=== PATIENT | male | born 1955 | race Caucasian/White ===

== ENCOUNTER 2022-07-28 14:08 | Emergency (ER) | payer OTHER, MEDICAID, SELFPAY ==
[2022-07-28 14:27] VITALS: BP 128/72; PULSE 106; RESP 22; TEMP 37.1; O2SAT 95; BMI 39.3
--- NOTE | 2022-07-28 14:38 | DI.RAD.S_ITS ---
PROCEDURE: XR CHEST 1V INDICATIONS: b/l leg swelling, testicular swelling TECHNIQUE: One view of the chest was acquired. COMPARISON: [facility], CR, XR CHEST 1 VIEW, 04/11/2022, 18:33. [facility], CR, XR CHEST 1 VIEW, 03/02/2022, 18:09. FINDINGS: Surgical changes and devices: None. Lungs and pleura: Lungs appear clear. No pleural effusions or pneumothorax. Mediastinum: Mediastinal contours appear unchanged. Heart size is normal. Bones and chest wall: No suspicious bony lesions. Overlying soft tissues appear unremarkable. IMPRESSION: No acute cardiopulmonary abnormality identified. Dictated by: Bruce Whalen M.D. on 07/28/2022 at 15:58 Approved by: Bruce Whalen M.D. on 07/28/2022 at 15:59
--- NOTE | 2022-07-28 14:38 | DI.US.S_ITS ---
PROCEDURE: US SCROTUM INDICATIONS: SCROTAL SWELLING TECHNIQUE: Real-time scanning was performed of the scrotum and testicles, with image documentation. Color and pulse Doppler interrogation was performed of both testicles. COMPARISON: None. FINDINGS: Right: Testicle is normal in size at 5.6 x 3.6 x 4.3 cm, and homogenous in echotexture. Epididymis is normal in overall size and morphology. Small loculated hydrocele. Overlying scrotal skin is significantly thickened. Left: Testicle is normal in size at 4.4 x 3.3 x 2.7 cm, and homogeneous in echotexture. Epididymis is normal in overall size and morphology. No hydrocele or varicoceles. Overlying scrotal skin is normal in thickness. Doppler: Increased vascularity of the right epididymis and testicle. Normal blood flow within the left epididymis and testicle. IMPRESSION: Severe right scrotal wall thickening, without drainable collection. Suspected right-sided epididymo-orchitis, as evidenced by increased vascularity and a tiny loculated right-sided hydrocele. Dictated by: Waqas Vasquez M.D. on 07/28/2022 at 15:20 Approved by: Waqas Vasquez M.D. on 07/28/2022 at 15:24
--- NOTE | 2022-07-28 14:40 | ED.MALEGU ---
HPI - Male Genitourinary General Chief complaint: Urogenital-Male Stated complaint: swollen testicles Time Seen by Provider: 07/28/22 14:38 Source: patient Mode of arrival: Ambulatory Limitations: no limitations History of Present Illness HPI Narrative: This is a 67-year-old male with history of polysubstance abuse with fentanyl and methamphetamines. Patient states he has had swelling in his legs longstanding he has been hospitalized before. He states he does not take any daily medications. He states it has been told he just has swelling but he is not aware of any congestive heart failure history. Patient states his legs are quite swollen today but they wax and wane and how swollen they are it is not significantly worse than his typical. The reason he presents as he is had new swelling in his testicles bilaterally and they become quite tight and painful. He states this is new. He does not appreciate the swelling from his legs into his thighs or abdomen. He patient states no fevers or chills. Denies any chest pain or shortness breath. He denies orthopnea. He denies any nausea or vomiting, no GI or urinary symptoms other than he has been using a trash bag to wrap around his testicles to catch his urine as they are swollen enough that can not direct the stream. Patient states his legs feel tight but not painful. He states the testicles do not feel painful in the deep tissue but more that they are very tight. He does notice some redness. He denies any drainage. No cuts or wounds. He has not had any weeping from legs with the testicles. He states he has been able to urinate it is just awkward. He denies discharge, no dysuria urgency or frequency. He states no prescription medications but does not follow regularly with primary care. Denies surgeries. He does use tobacco about 5 cigarettes daily, occasional alcohol, he states no injected medications but he does smoke fentanyl in methamphetamines regularly. Related Data Previous Rx's Medication Instructions Recorded doxycycline hyclate 100 mg tablet 100 mg PO BID #20 tabs 07/28/22 Allergies Allergy/AdvReac Type Severity Reaction Status Date / Time Penicillins Allergy Intermediate Hives Verified 07/28/22 14:32 Review of Systems Review of Systems ROS Unobtainable: All systems reviewed & are unremarkable except as noted in HPI and below Patient History Social History Smoking Status: Former smoker Smoking Status: Former smoker alcohol intake frequency: 0-2 drinks per day Substance Use Type: opiates Exam Narrative Exam Narrative: GENERAL: Alert and oriented x three, obese male in mild distress. HEENT: Head normocephalic, atraumatic, EOMI, pupils reactive, face symmetric, moist mucous membranes NECK: Supple, full range of motion CARDIOVASCULAR: Regular rate and rhythm without murmurs, rubs or gallops. RESPIRATORY: Breath sounds equal bilaterally, no wheezes rales or rhonchi. ABDOMEN: Soft, nontender. Normoactive bowel sounds all 4 quadrants. No guarding or rebound, rigidity, no mass : No CVA tenderness. Male: Patient has significant swelling of bilateral testicles, they feel full, tight, mildly tender to pain, there is erythema, no drainage, no open wounds, no necrosis, no penile discharge or lesions, the penis itself does not appear swollen appear in enveloped by his testicles, I am able to visualize his urethral meatus no discharge. Non-tender, cremasteric reflex intact, no inguinal hernias noted. EXTREMITIES: Normal range of motion, patient has bilateral edema lower extremities nonpitting, patient has thickened hyperkeratotic skin with discoloration consistent with chronic venous stasis change bilaterally. Neurovascularly intact. NEUROLOGICAL: Cranial nerves II through XII grossly intact. Moving all extremities SKIN: Warm, dry, no petechiae, no rashes or lesions otherwise noted. Initial Vital Signs Initial Vital Signs: Vital Signs Temperature 98.7 F 07/28/22 14:27 Pulse Rate 106 H 07/28/22 14:27 Respiratory Rate 22 07/28/22 14:27 Blood Pressure 128/72 07/28/22 14:27 Pulse Oximetry 95 07/28/22 14:27 Oxygen Delivery Method Room Air 07/28/22 14:27 Course Orders Ordered: ED Orders 07/28/22 14:34 UA Complete [Urinalysis and Microscopic] Stat Urine Culture Stat 07/28/22 14:38 US scrotum Stat XR chest 1V Stat 07/28/22 15:14 Consult to [facility] [place] Band Splicer Stat 07/28/22 15:45 Blood Culture Stat Complete Blood Count AUTO DIFF Stat Comprehensive Metabolic Panel Stat Lactate (Lactic Acid) Stat Lipase Stat NT-proBNP (BNP-Adult 18+) Stat PTT Partial Thromboplastin Kervin Stat Prothrombin Time INR Stat Troponin & CK Cardiac Panel Stat 07/28/22 16:13 EKG-12 Lead Stat Discontinued Medications Azithromycin (Azithromycin 250 Mg Tablet) 2,000 mg PO NOW ONE Stop: 07/28/22 15:48 Last Admin: 07/28/22 16:28 Dose: 2,000 mg Documented By: HANNAH Furosemide (Furosemide 40 Mg/4 Ml Vial) 40 mg IV NOW ONE Stop: 07/28/22 14:39 Last Admin: 07/28/22 16:34 Dose: Not Given Documented By: HANNAH Clindamycin Phosphate (Cleocin) 900 mg in 50 mls @ 50 mls/hr IV NOW ONE Stop: 07/28/22 15:38 Last Admin: 07/28/22 16:30 Dose: 50 mls/hr Documented By: HANNAH Vital Signs Vital signs: Vital Signs - 8 hr 07/28/22 14:27 07/28/22 16:36 07/28/22 17:44 Temperature 98.7 F Pulse Rate 106 H 76 76 Respiratory Rate 22 16 16 Blood Pressure 128/72 140/66 135/81 Pulse Oximetry 95 97 100 Oxygen Delivery Method Room Air Room Air Room Air MDM - Male Genitourinary Lab Data 07/28/22 15:45 07/28/22 15:45 Labs: Lab Results 07/28/22 07/28/22 07/28/22 Range/Units 14:34 15:45 15:45 WBC 11.1 H (4.5-11.0) X10^3/uL RBC 4.05 L (4.5-5.9) X10^6/uL Hgb 12.1 L (13.5-17.5) g/dL Hct 35.9 L (41-53) % MCV 88.5 (80-100) fL MCH 29.9 (26-34) PG MCHC 33.8 (30-36) % RDW 14.6 (11.6-14.8) % Plt Count 306 (150-400) X10^3/uL Neut % (Auto) 72.4 (50-75) % Lymph % (Auto) 16.1 L (25-40) % Gregory % (Auto) 9.3 (3-14) % Eos % (Auto) 1.7 L (2-4) % Baso % (Auto) 0.5 (0-2) % Neut # (Auto) 8100 H (6486-4486) /uL Lymph # (Auto) 1800 (9496-2907) /uL Gregory # (Auto) 1000 H (0-900) /uL Eos # (Auto) 200 (0-450) /uL Baso # (Auto) 100 (0-100) /uL PT 12.4 (10.1-12.7) SECONDS INR 1.1 (0.9-1.3) APTT 28 (26-36) SECONDS Sodium (137-145) mmol/L Potassium (3.4-5.1) mmol/L Chloride (98-107) mmol/L Carbon Dioxide (22-32) mmol/L BUN (9-20) mg/dL Creatinine (0.66-1.25) mg/dL Estimated GFR (>60) mL/min BUN/Creatinine Ratio (6-22) Glucose (80-110) mg/dL Lactate (0.7-2.1) mmol/L Calcium (8.4-10.2) mg/dL Total Bilirubin (0.2-1.3) mg/dL AST (17-59) IU/L ALT (<50) IU/L Alkaline Phosphatase (38-126) U/L Total Creatine Kinase (55-170) U/L CK-MB (CK-2) CK-MB (CK-2) Rel Index Troponin I (0.01-0.034) ng/mL NT-Pro-B Natriuret Pep (<125) pg/mL Total Protein (6.3-8.2) g/dL Albumin (3.5-5.0) g/dL Globulin (1.7-4.1) g/dL Albumin/Globulin Ratio (1.0-2.8) Lipase (23-300) U/L Urine Color Yellow Urine Appearance Cloudy Urine pH 7.5 (4.5-8.0) Ur Specific [place] 1.015 (1.000-1.035) Urine Protein 1+ H (Negative) Urine Glucose (UA) Negative (Negative) g/dL Urine Ketones Negative (NEGATIVE) Urine Occult Blood Trace-intact (Negative) Urine Nitrate Negative (Negative) Urine Bilirubin Negative (NEGATIVE) Urine Urobilinogen 0.2 (0.2) E.U./dL Ur Leukocyte Esterase 2+ H (NEGATIVE) Urine RBC None seen (0-5/HPF) Urine WBC >100/hpf H (0-5/HPF) Urine Bacteria Many (>30) H (None) Ur Culture Indicated? Specimen cultured 07/28/22 07/28/22 Range/Units 15:45 15:45 WBC (4.5-11.0) X10^3/uL RBC (4.5-5.9) X10^6/uL Hgb (13.5-17.5) g/dL Hct (41-53) % MCV (80-100) fL MCH (26-34) PG MCHC (30-36) % RDW (11.6-14.8) % Plt Count (150-400) X10^3/uL Neut % (Auto) (50-75) % Lymph % (Auto) (25-40) % Gregory % (Auto) (3-14) % Eos % (Auto) (2-4) % Baso % (Auto) (0-2) % Neut # (Auto) (4360-0265) /uL Lymph # (Auto) (0466-5846) /uL Gregory # (Auto) (0-900) /uL Eos # (Auto) (0-450) /uL Baso # (Auto) (0-100) /uL PT (10.1-12.7) SECONDS INR (0.9-1.3) APTT (26-36) SECONDS Sodium 136 L (137-145) mmol/L Potassium 4.2 (3.4-5.1) mmol/L Chloride 100 (98-107) mmol/L Carbon Dioxide 30 (22-32) mmol/L BUN 22 H (9-20) mg/dL Creatinine 0.77 (0.66-1.25) mg/dL Estimated GFR > 60 (>60) mL/min BUN/Creatinine Ratio 28.6 H (6-22) Glucose 113 H (80-110) mg/dL Lactate 1.0 (0.7-2.1) mmol/L Calcium 8.9 (8.4-10.2) mg/dL Total Bilirubin 0.4 (0.2-1.3) mg/dL AST 24 (17-59) IU/L ALT 28 (<50) IU/L Alkaline Phosphatase 65 (38-126) U/L Total Creatine Kinase 53 L (55-170) U/L CK-MB (CK-2) TNP CK-MB (CK-2) Rel Index TNP Troponin I < 0.012 (0.01-0.034) ng/mL NT-Pro-B Natriuret Pep 138 H (<125) pg/mL Total Protein 8.0 (6.3-8.2) g/dL Albumin 3.9 (3.5-5.0) g/dL Globulin 4.1 (1.7-4.1) g/dL Albumin/Globulin Ratio 1.0 (1.0-2.8) Lipase 30 (23-300) U/L Urine Color Urine Appearance Urine pH (4.5-8.0) Ur Specific [place] (1.000-1.035) Urine Protein (Negative) Urine Glucose (UA) (Negative) g/dL Urine Ketones (NEGATIVE) Urine Occult Blood (Negative) Urine Nitrate (Negative) Urine Bilirubin (NEGATIVE) Urine Urobilinogen (0.2) E.U./dL Ur Leukocyte Esterase (NEGATIVE) Urine RBC (0-5/HPF) Urine WBC (0-5/HPF) Urine Bacteria (None) Ur Culture Indicated? Urine Dip Bedside Urine Glucose Negative Bedside Urine Bilirubin - Negative Bedside Urine Ketone - Negative Urine Specific [place] 1.015 Bedside Urine Occult Blood + Bedside Urine pH 7.5 Bedside Urine Protein + 30 Bedside Urine Urobilinogen - Negative Bedside Urine Nitrite - Negative Bedside Urine Leukocytes + 70 Esterase Imaging Data scrotum US: Radiologist's Impression: [address] [address] Ultrasound Report Signed Patient: Adria Tuttle MR#: [id number] : 1955 Acct:[id number] Age/Sex: 67 / M Date of Service: 07/28/22 Loc: ED Accession Number: [id number] ?? Procedure: US scrotum Ordering Provider: Maribel Gandhi D.O. PROCEDURE:? US SCROTUM ? INDICATIONS:? SCROTAL SWELLING ? TECHNIQUE:? Real-time scanning was performed of the scrotum and testicles, with image documentation.? Color and pulse Doppler interrogation was performed of both testicles.? ? COMPARISON:? None. ? FINDINGS:? ? Right:? Testicle is normal in size at 5.6 x 3.6 x 4.3 cm, and homogenous in echotexture.? Epididymis is normal in overall size and morphology. Small loculated hydrocele.? Overlying scrotal skin is significantly thickened. ? Left:? Testicle is normal in size at 4.4 x 3.3 x 2.7 cm, and homogeneous in echotexture.? Epididymis is normal in overall size and morphology.? No hydrocele or varicoceles.? Overlying scrotal skin is normal in thickness.? ? Doppler:? Increased vascularity of the right epididymis and testicle.? Normal blood flow within the left epididymis and testicle. ? IMPRESSION:? Severe right scrotal wall thickening, without drainable collection. ? Suspected right-sided epididymo-orchitis, as evidenced by increased vascularity and a tiny loculated right-sided hydrocele. ? ? Dictated by: Waqas Vasquez M.D. on 07/28/2022 at 15:20 ? ? Approved by: Waqas Vasquez M.D. on 07/28/2022 at 15:24?? Chest x-ray: Radiologist's Impression: [place] [address] XRay Report Signed Patient: Adria Tuttle MR#: [id number] : 1955 Acct:[id number] Age/Sex: 67 / M Date of Service: 07/28/22 Loc: ED Accession Number: [id number] ?? Procedure: XR chest 1V Ordering Provider: Maribel Gandhi D.O. PROCEDURE:? XR CHEST 1V ? INDICATIONS:? b/l leg swelling, testicular swelling ? TECHNIQUE:? One view of the chest was acquired.? ? COMPARISON:? [facility], CR, XR CHEST 1 VIEW, 04/11/2022, 18:33.? [facility], CR, XR CHEST 1 VIEW, 03/02/2022, 18:09. ? FINDINGS:? ? Surgical changes and devices:? None.? ? Lungs and pleura:? Lungs appear clear.? No pleural effusions or pneumothorax.? ? Mediastinum:? Mediastinal contours appear unchanged.? Heart size is normal.? ? Bones and chest wall:? No suspicious bony lesions.? Overlying soft tissues appear unremarkable.? ? IMPRESSION:? No acute cardiopulmonary abnormality identified. ? ? ? Dictated by: Bruce Whalen M.D. on 07/28/2022 at 15:58 ? ? Approved by: Bruce Whalen M.D. on 07/28/2022 at 15:59?? ECG Data Attestation: I personally reviewed and interpreted this ECG as follows: Prior ECG tracings: not available for review Interpretation: Sinus rhythm rate 80 TN 158 QRS of 106 QTC of 454. No acute ST changes noted. No priors. MDM Narrative Medical decision making narrative: 67-year-old male I suspect has congestive heart failure causing testicular swelling but he does have some erythema of the testicles themselves so felt appropriate to obtain ultrasound and cover with a dose of IV antibiotics there is no skin breakdown, he is only mildly tender he is afebrile, patient does use methamphetamines and opiates regularly does not take any daily medications or following regularly with a primary care size back he has a component of congestive heart failure. CBC, CMP, troponin and BNP, EKG chest x-ray and testicular ultrasound show: Ultrasound shows thickened scrotal skin with epididymitis, small loculated hydrocele and changes consistent with orchitis on the right severe scrotal wall thickening on the right as well no drainable collection patient has changes consistent with cellulitis. He does not appear to be in CHF, he does have significant edema in his legs but has normal EKG, troponin, BNP with hemoglobin of 12, white count is 11, lactate is negative, glucose is 113 with no other LFT or renal changes. Patient's urine does show changes consistent with infection with white count of 100 and bacteria of 30. Discussed with patient observation for IV antibiotics he is reluctant to stay and would like to return home. We discussed that he this likely to fail outpatient antibiotics but he would like to return home. Started on oral antibiotics for orchitis/epididymitis and cellulitis with azithromycin 2 g, oral doxycycline. Patient did receive a dose of IV antibiotic in the department. Patient has penicillin allergy with hives so deferred Rocephin did coverage with azithromycin 2 g and doxycycline 100 mg b.i.d.. He had received a dose of clindamycin in the department. Discussed with Dr. Jackson with Urology he agrees with current plan, antibiotic choice. Discharge Plan Departure Patient Disposition: Home Clinical Impression: Orchitis and epididymitis, Cellulitis of scrotum Instructions: Epididymitis, DI for Orchitis Activity Restrictions/Additional Instructions: I discussed your case with urology, please call to follow up. Your workup today showed as a right-sided epididymitis/orchitis which is an infection in the testicle. You have been given an initial dose of antibiotic but she continue with doxycycline 100 mg twice daily for 10 days. Prescription sent to [facility] Please return with fevers, increasing pain, swelling, any breakdown of the skin, new difficulty with urination, no abdominal back or flank pain, or other new or concerning changes Prescriptions: New doxycycline hyclate 100 mg tablet 100 mg PO BID Qty: 20 0RF Referrals: Sanju Jackson MD [Physician] - Stand Alone Forms: Patient Portal/API
[2022-07-28 14:56] LABS: Appearance Urine UA CLOUDY; Bilirubin Urine UA NEGATIVE (NEGATIVE); Color Urine UA YELLOW; Glucose Urine UA NEGATIVE (Negative); Ketones Urine UA NEGATIVE (NEGATIVE); Leukocyte Esterase Urine UA 2+ (NEGATIVE); Nitrite Urine UA NEGATIVE (Negative); Occult Blood Urine UA TRACE-INTACT (Negative); Protein Urine UA 1+ (Negative); Specific Gravity Urine UA 1.015 (1.000-1.035); Urobilinogen Urine UA 0.2 E.U./dL (0.2); pH Urine UA 7.5 (4.5-8.0)
[2022-07-28 15:22] LABS: Bacteria Urine Many (>30); Culture Indicated Urine Specimen Cultured; RBC Urine None Seen (0-5/HPF); WBC Urine >100/HPF (0-5/HPF)
[2022-07-28 15:59] LABS: Add Manual Diff / Slide Review NO; Basophils Absolute Auto 100 /uL (0-100); Basophils Percent Auto 0.5 % (0-2); Eosinophils Absolute Auto 200 /uL (0-450); Eosinophils Percent Auto 1.7 % (2-4); Hematocrit 35.9 % (41-53); Hemoglobin 12.1 g/dL (13.5-17.5); Lymphocytes Absolute Auto 1800 /uL (1100-4500); Lymphocytes Percent Auto 16.1 % (25-40); Mean Corpuscular HGB Conc 33.8 % (30-36); Mean Corpuscular Hemoglobin 29.9 PG (26-34); Mean Corpuscular Volume 88.5 fL (80-100); Monocytes Absolute Auto 1000 /uL (0-900); Monocytes Percent Auto 9.3 % (3-14); Neutrophils Absolute Auto 8100 /uL (1500-7000); Neutrophils Percent Auto 72.4 % (50-75); Platelet Count 306 X10^3/uL (150-400); Red Blood Cell Count 4.05 X10^6/uL (4.5-5.9); Red Cell Distribution Width 14.6 % (11.6-14.8); White Blood Cell Count 11.1 X10^3/uL (4.5-11.0)
[2022-07-28 16:07] LABS: INR 1.1 (0.9-1.3); Prothrombin Time 12.4 SECONDS (10.1-12.7)
[2022-07-28 16:10] LABS: PTT Partial Thromboplastin Tim 28 SECONDS (26-36)
[2022-07-28 16:11] LABS: Alanine Aminotransferase 28 IU/L (<50); Albumin 3.9 g/dL (3.5-5.0); Alkaline Phosphatase 65 U/L (38-126); Aspartate Aminotransferase 24 IU/L (17-59); BUN Creatinine Ratio 28.6 (6-22); Bilirubin Total 0.4 mg/dL (0.2-1.3); Blood Urea Nitrogen 22 mg/dL (9-20); Calcium 8.9 mg/dL (8.4-10.2); Carbon Dioxide 30 mmol/L (22-32); Chloride 100 mmol/L (98-107); Creatine Kinase 53 U/L (55-170); Estimated Glomerular Filt Rate > 60 mL/min (>60); Globulin 4.1 g/dL (1.7-4.1); Glucose 113 mg/dL (80-110); HEMOLYSIS < 15 (0-50); Lipase 30 U/L (23-300); Potassium 4.2 mmol/L (3.4-5.1); Sodium 136 mmol/L (137-145)
[2022-07-28 16:23] LABS: NT-proBNP (BNP-Adult 18+) 138 pg/mL (<125); Troponin I < 0.012 ng/mL (0.01-0.034)
[2022-07-28] MEDS: AZITHROMYCIN 250 MG TABLET 2000 MG PO (16:28)
[2022-07-28] MEDS: CLINDAMYCIN 900 MG/50 ML PIGGYBACK 50 MG IV (16:30)
[2022-07-28 16:36] VITALS: BP 140/66; PULSE 76; RESP 16; O2SAT 97
--- NOTE | 2022-07-28 17:04 | CM.SWNOTE ---
S[employer] ASSOCIATE Note S[employer] PRO[employer] ASSOCIATE receives consult from ED provider due to concern for patient's polysubstance use. Patient is 67 y/o male who presents to ED due to concern for swelling of legs and testicles. Per ED provider patient is medically clear for d/c. SCHO[employer] PRO[employer] ASSOCIATE introduces self to patient, SCHOOL [employer] PRO[employer] ASSOCIATE offers services and resources, patient denies any SCHO[employer] PRO[employer] ASSOCIATE needs, patient endorses all concerns were addressed today in ED. Patient endorses his plan to f/u with urology. MARU AjSW
[2022-07-28 17:44] VITALS: BP 135/81; PULSE 76; RESP 16; O2SAT 100
== END 2022-07-28 17:44 | disposition home or self-care (01) ==
PROVIDERS: Emergency Provider Emergency Medicine
DX: N45.3 Epididymo-orchitis (principal); N49.2 Inflammatory disorders of scrotum; R60.9 Edema, unspecified
CPT/HCPCS: 36415; 71045; 76870; 80053; 81001; 81003; 82550; 83605; 83690; 83880; 84484; 85025; 85610; 85730; 87040; 87077; 87086; 87186; 93005; 96365; 99284

== ENCOUNTER 2023-03-14 20:43 | Emergency (ER) | payer OTHER, SELFPAY ==
[2023-03-14] VITALS (8 sets, daily range): BP systolic 138–180; BP diastolic 79–90; PULSE 65–101; RESP 20; TEMP 36.9; O2SAT 94–96; BMI 43.4
--- NOTE | 2023-03-14 21:13 | ED_ITS ---
HPI - Extremity Problem General Chief complaint: Extremity Problem,Nontraumatic Stated complaint: BOTH LEGS INFECTION Time Seen by Provider: 03/14/23 20:47 Source: patient Mode of arrival: Ambulatory History of Present Illness HPI Narrative: 67-year-old male with history of prediabetes, history of lymphedema, polysubstance abuse (cocaine, amphetamines, opiates) presents by private vehicle from home for bilateral lower extremity swelling and pain. Patient was admitted to the [facility] from 02/21-02/26 of this month after being treated for MRSA. He was discharged on linezolid, which he completed. States that his legs initially seemed to be getting better, but they have gradually become red again and more painful. He states that he is no longer wrapping his legs because he can not afford the wraps. Last cocaine and fentanyl use yesterday. Denies fevers. Related Data Previous Rx's Medication Instructions Recorded doxycycline hyclate 100 mg tablet 100 mg PO BID #20 tabs 07/28/22 doxycycline hyclate 100 mg capsule 100 mg PO BID #30 caps 03/15/23 Allergies Allergy/AdvReac Type Severity Reaction Status Date / Time Penicillins Allergy Intermediate Hives Verified 07/28/22 14:32 Review of Systems Review of Systems Narrative: Negative except as noted above. Patient History Social History Smoking Status: Former smoker Smoking Status: Former smoker tobacco type: cigarettes and vaping alcohol intake frequency: 0-2 drinks per day Substance Use Type: crack/cocaine, opiates and other Exam Initial Vital Signs Initial Vital Signs: Vital Signs Temperature 98.5 F 03/14/23 20:52 Pulse Rate 91 H 03/14/23 20:52 Respiratory Rate 20 03/14/23 20:52 Blood Pressure 180/87 H 03/14/23 20:52 Pulse Oximetry 96 03/14/23 20:52 Oxygen Delivery Method Room Air 03/14/23 20:52 Const: Awake, alert, appears chronically unwell, older than stated age, hygiene poor Eyes: PERRL, EOMI, conjunctiva normal RESP: unlabored, clear bilaterally, no wheezing GI: Atraumatic, soft, nontender, nondistended Skin: Extensive bilateral lymphedema to knees, overlying venous stasis changes. Clear seepage from legs. Mild overlying warmth without fluctuance Neuro: AO x3, CN II-XII grossly intact, moves all extremities Psych: affect normal, mood normal, not suicidal, not homicidal Course Orders Ordered: ED Orders 03/14/23 21:53 Blood Culture Stat CBC Auto Diff [Complete Blood Count AUTO DIFF] Stat CMP [Comprehensive Metabolic Panel] Stat CRP [C-Reactive Protein Quant] Stat Erythrocyte Sedimentation Rate Stat Lactate (Lactic Acid) Stat 03/15/23 01:13 Wound Culture and Gram Stain Stat Discontinued Medications Doxycycline Hyclate (Doxycycline Hyclate 100 Mg Tablet) 200 mg PO NOW ONE Stop: 03/14/23 23:57 Last Admin: 03/15/23 00:31 Dose: 200 mg Documented By: KELI Acetaminophen (Ofirmev) 1,000 mg in 100 mls @ 400 mls/hr IV NOW ONE Stop: 03/15/23 00:04 Last Infusion: 03/15/23 00:40 Dose: Infused Documented By: Infusion: 03/15/23 00:40 Dose: Infused Documented By: Admin: 03/15/23 00:28 Dose: 400 mls/hr Documented By: KELI Doxycycline Hyclate 100 mg/ (Sodium Chloride) 100 mls @ 100 mls/hr IV NOW ONE Stop: 03/14/23 23:51 Last Admin: 03/15/23 00:39 Dose: 100 mls/hr Documented By: KELI Vital Signs Vital signs: Vital Signs - 8 hr 03/14/23 20:52 03/14/23 20:54 03/14/23 21:00 Temperature 98.5 F Pulse Rate 91 H 89 89 Respiratory Rate 20 Blood Pressure 180/87 H Pulse Oximetry 96 95 94 Oxygen Delivery Method Room Air 03/14/23 21:00 03/14/23 23:23 03/14/23 23:24 Temperature Pulse Rate 65 89 Respiratory Rate Blood Pressure 176/86 H Pulse Oximetry 96 Oxygen Delivery Method Room Air 03/14/23 23:24 03/14/23 23:29 03/14/23 23:31 Temperature Pulse Rate 101 H Respiratory Rate Blood Pressure 138/79 157/90 H Pulse Oximetry 95 Oxygen Delivery Method Room Air 03/14/23 23:39 03/15/23 00:00 03/15/23 00:02 Temperature Pulse Rate 73 89 Respiratory Rate Blood Pressure Pulse Oximetry 94 94 Oxygen Delivery Method Room Air 03/15/23 00:02 03/15/23 00:30 03/15/23 00:55 Temperature Pulse Rate 88 Respiratory Rate Blood Pressure 143/74 H 140/67 Pulse Oximetry 93 Oxygen Delivery Method Room Air 03/15/23 00:55 03/15/23 01:00 03/15/23 01:01 Temperature Pulse Rate 96 H 98 H 97 H Respiratory Rate Blood Pressure Pulse Oximetry 95 94 93 Oxygen Delivery Method Room Air Room Air Room Air 03/15/23 01:01 Temperature Pulse Rate Respiratory Rate Blood Pressure 126/67 Pulse Oximetry Oxygen Delivery Method MDM - Extremity (Nontraumatic) Differential Diagnosis Differential diagnosis: Likely gout, cellulitis and lower extremity edema Medical Records Medical records narrative: Records obtained and reviewed frompatient's recent [facility] hospitalization. Patient had MRSA that was sensitive to linezolid, daptomycin, vancomycin, and tetracyclines. Likely exacerbated by noncompliance with wrapping/elevation and severe lymphedema. Also complicated by polysubstance use. Patient states he was unable to follow with wound care due to insurance issues. Referral to [facility] faxed, however patient lives in [facility] and this could pose difficult due to distance. Patient previously on Linezolid, will change to doxycycline. Lymphedema wrapped in stockings and patient advised on the importance of wound care follow up, keeping legs elevated/wrapped, and cessation of illicit substances. Lab Data 03/14/23 21:53 03/14/23 21:53 Labs: Lab Results 03/14/23 Range/Units 21:53 WBC 9.6 (4.5-11.0) X10^3/uL RBC 3.99 L (4.5-5.9) X10^6/uL Hgb 11.9 L (13.5-17.5) g/dL Hct 35.3 L (41-53) % MCV 88.5 (80-100) fL MCH 29.8 (26-34) PG MCHC 33.6 (30-36) % RDW 15.7 H (11.6-14.8) % Plt Count 280 (150-400) X10^3/uL Neut % (Auto) 74.2 (50-75) % Lymph % (Auto) 12.3 L (25-40) % Hardy % (Auto) 11.1 (3-14) % Eos % (Auto) 2.0 (2-4) % Baso % (Auto) 0.4 (0-2) % Neut # (Auto) 7100 H (1071-2379) /uL Lymph # (Auto) 1200 (2827-0618) /uL Hardy # (Auto) 1100 H (0-900) /uL Eos # (Auto) 200 (0-450) /uL Baso # (Auto) 0 (0-100) /uL ESR 48 H (0-15) MM/HR Sodium 134 L (137-145) mmol/L Potassium 4.3 (3.4-5.1) mmol/L Chloride 101 (98-107) mmol/L Carbon Dioxide 29 (22-32) mmol/L BUN 24 H (9-20) mg/dL Creatinine 0.77 (0.66-1.25) mg/dL Estimated GFR > 60 (>60) mL/min BUN/Creatinine Ratio 31.2 H (6-22) Glucose 113 H (80-110) mg/dL Lactate 1.0 (0.7-2.1) mmol/L Calcium 8.7 (8.4-10.2) mg/dL Total Bilirubin 0.5 (0.2-1.3) mg/dL AST 18 (17-59) IU/L ALT 19 (<50) IU/L Alkaline Phosphatase 62 (38-126) U/L C-Reactive Protein 6.3 H (<1.0) mg/dL Total Protein 8.0 (6.3-8.2) g/dL Albumin 3.4 L (3.5-5.0) g/dL Globulin 4.6 H (1.7-4.1) g/dL Albumin/Globulin Ratio 0.7 L (1.0-2.8) MDM Narrative Medical decision making narrative: Chronically unwell appearing patient presenting for worsening erythema of his bilateral lower extremities. Recently treated for MRSA with linezolid. Records requested from [facility], sensitivities reviewed. We will repeat labs at this time. Patient reassessed, he is sleeping in the emergency bed, vital signs stable. Patient has elevated sed rate and CRP, however no leukocytosis, lactic acid is within normal limits. Sensitivities from [facility] shows sensitivity to doxycycline. Patient was strongly advised on the importance of following up with Wound Care and stopping tobacco and illicit substances. He has a standing referral to wound care at [facility], however an additional referral to [facility] wound care was also faxed. His wounds were wrapped and he was counseled to keep his extremities wrapped into elevate his lower extremities. Initial dose of doxycycline provided in the emergency department as well as 2 doses for a.m. and p.m tomorrow since it is Thanksgiving and all pharmacies are closed. 2 weeks of therapy sent to pharmacy. Discharge Plan Departure Patient Disposition: Home Clinical Impression: MRSA (methicillin resistant Staphylococcus aureus), Lymphedema, Polysubstance abuse Cellulitis Qualifiers: Site of cellulitis: extremity Site of cellulitis of extremity: lower extremity Laterality: unspecified laterality Qualified Code(s): L03.119 - Cellulitis of unspecified part of limb Instructions: DI for Cellulitis -- Adult, DI for Lymphedema Activity Restrictions/Additional Instructions: At this time you appear to have mild cellulitis overlying your lymphedema. It is extremely important that you take all medications as prescribed. Keep your legs wrapped and elevated whenever possible. It is extremely important that you stop all illegal substances, as this will make your cellulitis worse and significantly slow down your healing process. I saw from your paperwork that you were referred to the [facility], I highly recommend that you establish with a wound care clinic to monitor the progress of your cellulitis. A referral to the W[facility] Care Center in [place] is also being provided. Please call [phone] for an appointment. Prescriptions: New doxycycline hyclate 100 mg capsule 100 mg PO BID Qty: 30 0RF No Action doxycycline hyclate 100 mg tablet 100 mg PO BID Qty: 20 0RF Stand Alone Forms: Patient Portal/API
[2023-03-14 22:04] LABS: Add Manual Diff / Slide Review NO; Basophils Absolute Auto 0 /uL (0-100); Basophils Percent Auto 0.4 % (0-2); Eosinophils Absolute Auto 200 /uL (0-450); Hematocrit 35.3 % (41-53); Hemoglobin 11.9 g/dL (13.5-17.5); Lymphocytes Absolute Auto 1200 /uL (1100-4500); Lymphocytes Percent Auto 12.3 % (25-40); Mean Corpuscular HGB Conc 33.6 % (30-36); Mean Corpuscular Hemoglobin 29.8 PG (26-34); Mean Corpuscular Volume 88.5 fL (80-100); Monocytes Absolute Auto 1100 /uL (0-900); Monocytes Percent Auto 11.1 % (3-14); Neutrophils Absolute Auto 7100 /uL (1500-7000); Neutrophils Percent Auto 74.2 % (50-75); Platelet Count 280 X10^3/uL (150-400); Red Blood Cell Count 3.99 X10^6/uL (4.5-5.9); Red Cell Distribution Width 15.7 % (11.6-14.8); White Blood Cell Count 9.6 X10^3/uL (4.5-11.0)
[2023-03-14 22:18] LABS: Alanine Aminotransferase 19 IU/L (<50); Albumin 3.4 g/dL (3.5-5.0); Albumin Globulin Ratio 0.7 (1.0-2.8); Alkaline Phosphatase 62 U/L (38-126); Aspartate Aminotransferase 18 IU/L (17-59); BUN Creatinine Ratio 31.2 (6-22); Bilirubin Total 0.5 mg/dL (0.2-1.3); Blood Urea Nitrogen 24 mg/dL (9-20); Calcium 8.7 mg/dL (8.4-10.2); Carbon Dioxide 29 mmol/L (22-32); Chloride 101 mmol/L (98-107); Estimated Glomerular Filt Rate > 60 mL/min (>60); Globulin 4.6 g/dL (1.7-4.1); Glucose 113 mg/dL (80-110); HEMOLYSIS < 15 (0-50); Potassium 4.3 mmol/L (3.4-5.1); Sodium 134 mmol/L (137-145)
[2023-03-14 22:23] LABS: Erythrocyte Sedimentation Rate 48 MM/HR (0-15)
[2023-03-14 22:32] LABS: C-Reactive Protein Quant 6.3 mg/dL (<1.0)
[2023-03-15] VITALS (8 sets, daily range): BP systolic 126–144; BP diastolic 59–74; PULSE 88–98; O2SAT 93–95
[2023-03-15] MEDS: ACETAMINOPHEN IV 1,000 MG/100 ML VIAL 400 MG IV (00:28)
[2023-03-15] MEDS: DOXYCYCLINE HYCLATE 100 MG TABLET 200 MG PO (00:31)
[2023-03-15] MEDS: DOXYCYCLINE 100 MG in SODIUM CHLORIDE 0.9% 100 ML IV (00:39)
== END 2023-03-15 02:12 | disposition home or self-care (01) ==
PROVIDERS: Emergency Provider Emergency Medicine
DX: L03.116 Cellulitis of left lower limb (principal); L03.115 Cellulitis of right lower limb; B95.62 Methicillin resistant Staphylococcus aureus infection as the cause of diseases classified elsewhere; I89.0 Lymphedema, not elsewhere classified; F19.10 Other psychoactive substance abuse, uncomplicated
CPT/HCPCS: 36415; 80053; 83605; 85025; 85651; 86140; 87040; 87070; 87077; 87147; 87186; 87205; 96365; 96375; 99284; J0131